=== PATIENT | male | born 1990 | race Caucasian/White ===

== ENCOUNTER 2023-11-27 19:33 | Inpatient (IN) | payer BC ==
[~2023-11-27] VITALS: Ht 185.4 cm; Wt 118.8 kg
[2023-11-27 19:48] VITALS: BP_SYST 127; PULSE 103; RESP 20; TEMP 101.2; O2SAT 94
[2023-11-27] MEDS: ONDANSETRON 4 MG ODT TAB PO ONE (20:42)
[2023-11-27] MEDS: ACETAMINOPHEN 500 MG TABLET PO ONE (20:42)
[2023-11-27 21:07] LABS: BILIRUBIN,URINE NEGATIVE (NEGATIVE); BLOOD, URINE NEGATIVE (NEGATIVE); CLARITY/URINE CLEAR (CLEAR); COLOR,URINE YELLOW (YELLOW); GLUCOSE,URINE NEGATIVE (NEGATIVE); KETONES,URINE NEGATIVE (NEGATIVE); LEUKOCYTE ESTERASE ,URINE NEGATIVE (NEGATIVE); NITRITE, URINE NEGATIVE (NEGATIVE); PROTEIN URINE TRACE (NEGATIVE); UROBILINOGEN,URINE 0.2 (0.2-1.0)
[2023-11-27 21:38] LABS: BASOPHILS % (AUTO) 0.2 % (0.0-2.0); HEMATOCRIT 43.5 % (36-54); HEMOGLOBIN 14.9 g/dL (14.0-18.0); LYMPHOCYTES # (AUTO) 1.4 K/uL (1.0-5.5); LYMPHOCYTES % (AUTO) 9.4 % (20.5-51.5); MEAN CORPUSCULAR HEMOGLOBIN 32 pg (27-31); MEAN CORPUSCULAR HGB CONC 34 % (32-36); MEAN CORPUSCULAR VOLUME 93 fL (79.0-98.0); MONOCYTES # (AUTO) 1.3 K/uL (0.0-1.0); MONOCYTES % (AUTO) 9.2 % (1.7-9.3); NEUTROPHILS # (AUTO) 11.7 K/uL (1.8-7.7); NEUTROPHILS % (AUTO) 81.2 % (40.0-70.0); PLATELET COUNT (AUTO) 287 K/uL (130-430); RED CELL DISTRIBUTION WIDTH 13.3 % (9.0-15.0); WHITE BLOOD COUNT (AUTO) 14.5 K/uL (4.8-10.8)
[2023-11-27 21:39] LABS: BACTERIA,URINE RARE /HPF (None Seen)
[2023-11-27 21:52] LABS: CALCIUM 8.9 mg/dL (8.4-11.0); CREATININE 1.2 mg/dL (0.55-1.30); POTASSIUM 3.9 mmol/L (3.5-5.1)
[2023-11-27 21:56] LABS: ALBUMIN 3.9 g/dL (3.4-4.8); TOTAL BILIRUBIN 0.8 mg/dL (0.0-1.0); TOTAL PROTEIN, SERUM 7.9 g/dL (6.4-8.3)
[2023-11-28] VITALS (7 sets, daily range): BP systolic 101–118; PULSE 60–96; RESP 16–18; TEMP 97.3–98.1; O2SAT 98–100
[2023-11-28] MEDS: NACL 0.9% 1,000 ML IV ONE (00:44)
[2023-11-28] MEDS ORDERED: ONDANSETRON HCL 4 MG/2 ML VIAL IVP PRN ×2 (01:30→12:45)
[2023-11-28] MEDS ORDERED: cefTRIAXone 1 GM VIAL ONE (02:00)
[2023-11-28] MEDS: metroNIDAZOLE 500 mg/NS 100 ML IV ONE (02:11)
[2023-11-28] MEDS: cefTRIAXone 1 GM in D5W 50 ML IV ONE (02:56)
[2023-11-28] MEDS: ONDANSETRON HCL 4 MG/2 ML VIAL IVP ONE (03:36)
[2023-11-28] MEDS: MORPHINE 4 MG INJ. 4 MG/ML VIAL IVP ONE (03:36)
[2023-11-28] MEDS: KCL 20 mEq in D5/0.45NS 1000mL 1,000 ML IV ONE (05:22)
[2023-11-28 06:58] LABS: BASOPHILS % (AUTO) 0.2 % (0.0-2.0); EOSINOPHILS % (AUTO) 0.2 % (0.0-4.0); HEMATOCRIT 38.7 % (36-54); HEMOGLOBIN 13.3 g/dL (14.0-18.0); MEAN CORPUSCULAR HEMOGLOBIN 33 pg (27-31); MEAN CORPUSCULAR HGB CONC 35 % (32-36); MEAN CORPUSCULAR VOLUME 94 fL (79.0-98.0); MONOCYTES # (AUTO) 1.6 K/uL (0.0-1.0); MONOCYTES % (AUTO) 15.4 % (1.7-9.3); NEUTROPHILS % (AUTO) 65.2 % (40.0-70.0); PLATELET COUNT (AUTO) 244 K/uL (130-430); RED CELL DISTRIBUTION WIDTH 13.4 % (9.0-15.0); WHITE BLOOD COUNT (AUTO) 10.7 K/uL (4.8-10.8)
[2023-11-28 07:12] LABS: CALCIUM 8.2 mg/dL (8.4-11.0); CREATININE 1.18 mg/dL (0.55-1.30); POTASSIUM 3.4 mmol/L (3.5-5.1)
[2023-11-28] MEDS: KCL 20 mEq in D5/0.45NS 1000mL 1,000 ML IV SCH (08:14)
[2023-11-28 09:51] LABS: INR 1.1 (0.80-1.20)
[2023-11-28] MEDS: fentaNYL CITRATE/PF 100 MCG/2 ML AMP ONE (12:18)
[2023-11-28] MEDS: MIDAZOLAM HCL 2 MG/2 ML VIAL (VERSED) ONE (12:18)
[2023-11-28] MEDS: ACETAMINOPHEN I.V. 1000 MG 100 ML IV ONE (12:19)
[2023-11-28] MEDS ORDERED: 0.45% NACL 1,000 ML BAG IV ONE (12:26)
[2023-11-28] MEDS ORDERED: ROCURONIUM BROMIDE 10 MG/ML (ZEMURON) ONE (12:26)
[2023-11-28] MEDS ORDERED: ONDANSETRON HCL 4 MG/2 ML VIAL ONE (12:26)
[2023-11-28] MEDS ORDERED: LIDOCAINE/EPI 1% 1:100000 20 ML VIAL ONE (12:26)
[2023-11-28] MEDS ORDERED: PROPOFOL 200MG/ 20ML VIAL (DIPRIVAN) IV ONE (12:26)
[2023-11-28] MEDS ORDERED: LR 1,000 ML IV.SOLN IV ONE (12:26)
[2023-11-28] MEDS ORDERED: NS IRRIG SOLN 1000 ML IR ONE (12:26)
[2023-11-28] MEDS ORDERED: WATER FOR IRRIGATION,STERILE 1,000 ML IRRIG.SOLN IR ONE (12:26)
[2023-11-28] MEDS ORDERED: DEXAMETHASONE SOD PHOSPHATE 4 MG/ML VIAL ONE (12:26)
[2023-11-28] MEDS ORDERED: SEVOFLURANE 15 MIN GAS INH ONE (12:26)
[2023-11-28] MEDS ORDERED: LR 1,000 ML IV ONE (12:45)
[2023-11-28] MEDS ORDERED: fentaNYL CITRATE/PF 100 MCG/2 ML AMP IVP PRN ×2 (12:45)
[2023-11-28] MEDS ORDERED: HYDROmorphone 1 MG/ML INJ. CARTRIDGE IVP PRN (12:45)
[2023-11-28] MEDS ORDERED: NALOXONE HCL 0.4 MG/ML AMP (NARCAN) IVP PRN (12:45)
[2023-11-28] MEDS: BUPIVACAINE LIPOSOME/PF 266 MG/20 ML VIAL INFIL ONE (13:26)
[2023-11-28] MEDS: metroNIDAZOLE 250 mg/NS 50 ML IV SCH (14:00)
[2023-11-28] MEDS: cefTRIAXone 1 GM in D5W 50 ML IV SCH (20:54)
[2023-11-28] MEDS: MORPHINE 4 MG INJ. 4 MG/ML VIAL IVP PRN (21:05)
[2023-11-29] VITALS: BP_SYST 109; PULSE 62; RESP 16; TEMP 98.3; O2SAT 98
[2023-11-29 07:13] LABS: BASOPHILS % (AUTO) 0.2 % (0.0-2.0); CALCIUM 8.5 mg/dL (8.4-11.0); CREATININE 1.03 mg/dL (0.55-1.30); HEMATOCRIT 36.9 % (36-54); HEMOGLOBIN 12.7 g/dL (14.0-18.0); LYMPHOCYTES # (AUTO) 1.4 K/uL (1.0-5.5); LYMPHOCYTES % (AUTO) 12.4 % (20.5-51.5); MEAN CORPUSCULAR HEMOGLOBIN 32 pg (27-31); MEAN CORPUSCULAR HGB CONC 34 % (32-36); MEAN CORPUSCULAR VOLUME 94 fL (79.0-98.0); MONOCYTES # (AUTO) 1.2 K/uL (0.0-1.0); MONOCYTES % (AUTO) 10.4 % (1.7-9.3); NEUTROPHILS # (AUTO) 8.7 K/uL (1.8-7.7); PLATELET COUNT (AUTO) 250 K/uL (130-430); POTASSIUM 4.1 mmol/L (3.5-5.1); RED BLOOD CELL COUNT(AUTO) 3.93 MIL/uL (4.2-6.2); RED CELL DISTRIBUTION WIDTH 13.1 % (9.0-15.0); WHITE BLOOD COUNT (AUTO) 11.3 K/uL (4.8-10.8)
[2023-11-29 07:39] VITALS: BP_SYST 104; PULSE 51; RESP 19; TEMP 96.5; O2SAT 91
[2023-11-29 10:16] VITALS: BP_SYST 104; PULSE 68; RESP 18; TEMP 97.1; O2SAT 96
[2023-11-29 12:57] VITALS: BP_SYST 121; PULSE 62; RESP 18; TEMP 97.5; O2SAT 98
[2023-11-29 15:06] VITALS: BP_SYST 110; PULSE 64; RESP 18; TEMP 96.8; O2SAT 97
== END 2023-11-29 17:40 | disposition home or self-care (01) | DRG 399 ==
LOC: SED 19:33 → SMU 11-28 01:18
PROVIDERS: ADMIT Surgery; ATTEND Surgery
PROC: 0DTJ4ZZ Resection of Appendix, Percutaneous Endoscopic Approach (ICD-10-PCS; principal; 2023-11-28 12:26)
DX: K35.80 Unspecified acute appendicitis (principal); Z87.09 Personal history of other diseases of the respiratory system; Z79.899 Other long term (current) drug therapy
CPT/HCPCS: 36415; 71045; 80048; 80053; 81000; 81001; 81015; 83690; 85025; 85610; 85730; 87081; 88304; 93005; C9290; J0131; J0696; J1100; J2270; J2405; J2704; J3010; J3465; J3490; J7060; J7120; Q0162